=== PATIENT | female | born 1970 | race Native Hawaiian/Other Pacific Islander ===

== ENCOUNTER → 2020-12-31 | Outpatient (CLI) | payer BC, OTHER | LOC: INF 12:20 | PROVIDERS: ATTEND Internal Medicine | DX: Z23 Encounter for immunization (principal) | CPT/HCPCS: 96372 ==

== ENCOUNTER 2022-04-18 09:52 | Outpatient (CLI) | payer BC | END 2022-04-18 19:21 | disposition home or self-care (01) | LOC: MAMMO 09:52 | PROVIDERS: ATTEND Obstetrics & Gynecology | DX: Z12.31 Encounter for screening mammogram for malignant neoplasm of breast (principal) ==